=== PATIENT | male | born 1965 | race Caucasian/White ===

== ENCOUNTER 2020-10-31 16:00 | Emergency (ER) | payer OTHER ==
[~2020-10-31] VITALS: Ht 182.9 cm; Wt 117.9 kg
[2020-10-31 16:04] VITALS: BP 166/87
== END 2020-10-31 18:09 | disposition home or self-care (01) ==
LOC: ER 16:00
DX: S01.01XA Laceration without foreign body of scalp, initial encounter (principal); I10 Essential (primary) hypertension; X58.XXXA Exposure to other specified factors, initial encounter; Y93.89 Activity, other specified; Y92.89 Other specified places as the place of occurrence of the external cause; Y99.8 Other external cause status
CPT/HCPCS: 12002; 70450